=== PATIENT | female | born 1945 | race Caucasian/White ===

== ENCOUNTER 2020-12-09 09:26 | Outpatient (CLI) | payer MEDICARE ==
--- NOTE | 2020-12-09 11:18 | RAD ---
CERVICAL SPINE 4 VIEWS: HISTORY: C2 fracture. COMPARISON: There are no comparison studies available. FINDINGS: The cervical vertebrae maintain height and alignment. Degenerative changes are noted. There is a mi ld anterolisthesis at C3-4 measured at 2-3 mm. The disk spaces are preserved. Mild anterior osteoph ytes. Facet hypertrophy and mild posterior spondylosis. The atlantoaxial space is normal. A C2 fracture is not delineated on this study. The lateral masses appear to align on the odontoid view. IMPRESSION: Degenerative changes of the cervical spine. C2 fracture is not delineated on this study. POS: [facility]
== END 2020-12-09 09:27 | disposition home or self-care (01) ==
LOC: TBSIIMAG 09:26
PROVIDERS: ATTEND Neurological Surgery
DX: S12.100A Unspecified displaced fracture of second cervical vertebra, initial encounter for closed fracture (principal); M47.812 Spondylosis without myelopathy or radiculopathy, cervical region
CPT/HCPCS: 72040